=== PATIENT | male | born 1940 | race Caucasian/White ===

== ENCOUNTER 2018-10-02 03:07 | Emergency (ER) | payer MEDICARE ==
[~2018-10-02] VITALS: Ht 182.9 cm; Wt 97.5 kg
--- NOTE | 2018-10-02 03:27 | NUR ---
ED Nurse Note: PT CAME TO ED FROM HOME VIA RA [id number]. PER PT HE WAS WATCHING TV AND HE WOKE UP ON THE FLOOR HIS FRIEND CALLED IVONNE. PT DENIES TRAUMA TO HEAD LEFT FOREARM AND BACK SKIN TEAR PRESENT PRIOR TO ARRIVAL
[2018-10-02 03:28] VITALS: BP_SYST 147; BP_SYST 150; BP_DIAS 100; BP_DIAS 73
[2018-10-02] MEDS ORDERED: dilTIAZem HCl 25mg/5ml Inj IVP ONE (03:30)
--- NOTE | 2018-10-02 03:33 | Emergency Room Report ---
History of Present Illness General Chief Complaint: Generalized Weakness Source: Patient Present Illness HPI Is a 77-year-old male with a history of high blood pressure and atrial fibrillation. He was on Coumadin but stopped 6 months ago secondary to hematuria. He presents with chief complaint of joint weakness. Onset for last couple days. Said he has no energy and can't move. He called 911. Denies any pain. Denies any nausea vomiting. Denies any abdominal pain. Denies any drug use or alcohol. History limited on this patient because he's is a poor historian. Patient had a friend who showed up to the ER. His friend said that 2 weeks ago patient was normal walking around without difficulty. He hadn't heard from him so he went to do a welfare check. He found the patient lying in bed. Has no strength and unable to get up. He called 911. Allergies: Coded Allergies: SULFAMETHOXAZOLE (Verified Allergy, Unknown, 10/02/18) TRIMETHOPRIM (Verified Allergy, Unknown, 10/02/18) Patient History Past Medical History: see triage record, old chart reviewed, HTN, AFib Past Surgical History: other Pertinent Family History: none Social History: Denies: smoking Immunizations: other Reviewed Nursing Documentation: PMH: Agreed; PSxH: Agreed Nursing Documentation-PMH Hx Cardiac Problems: Yes - heart valve replacement Hx Hypertension: Yes Hx Diabetes: Yes Review of Systems Constitutional: Reports: weakness Eye: Denies: eye pain, blurred vision ENT: Denies: ear pain, nose congestion, throat swelling Respiratory: Denies: cough, shortness of breath Cardiovascular: Denies: chest pain, palpitations Gastrointestinal: Denies: abdominal pain, diarrhea, nausea, vomiting Musculoskeletal: Denies: back pain, joint pain Skin: Denies: rash Neurological: Denies: headache, numbness Endocrine: Denies: increased thirst, increased urine Hematologic/Lymphatic: Denies: easy bruising All Other Systems: negative except mentioned in HPI Physical Exam Vital Signs Date Time Temp Pulse Resp B/P (MAP) Pulse Ox O2 Delivery O2 Flow Rate FiO2 10/02/18 03:10 97.0 53 20 150/100 96 Room Air vitals with high blood pressure. Repeat heart rate tachycardic at 130s Sp02 EP Interpretation: reviewed, normal General Appearance: well appearing, no apparent distress, alert Head: normocephalic, atraumatic Eyes: bilateral eye PERRL, bilateral eye EOMI ENT: hearing grossly normal, dry mucus membranes - There is evidence of dry blood Neck: full range of motion, supple, no meningismus Respiratory: chest non-tender, lungs clear, normal breath sounds Cardiovascular #1: no murmur, tachycardia, irregularly irregular Gastrointestinal: normal bowel sounds, non tender, no mass, no organomegaly, no bruit, non-distended Musculoskeletal: back normal, normal range of motion Neurologic: alert, grossly normal Psychiatric: mood/affect normal Skin: warm/dry Procedures Critical Care Time Critical Care Time Critical care is mandated in this patient who presented with rapid A. fib. Patient require my urgent intervention to attenuate the risks of metabolic collapse which may lead to cardiovascular collapse and . Critical care time is 35 minutes excluding any reportable procedure. Critical care time included evaluation, multiple reevaluation, looking at old charts, interpreting laboratory and diagnostic data, discussing case with patient and family and consultants, and charting. Medical Decision Making Diagnostic Impression: Primary Impression: Atrial fibrillation with RVR Additional Impressions: UTI (urinary tract infection) Qualified Codes: N30.00 - Acute cystitis without hematuria ACS (acute coronary syndrome) Acute metabolic encephalopathy CHF exacerbation Qualified Codes: I50.33 - Acute on chronic diastolic (congestive) heart failure Thrombocytopenia HERO (acute kidney injury) Proteinuria Qualified Codes: R80.9 - Proteinuria, unspecified Rhabdomyolysis Qualified Codes: M62.82 - Rhabdomyolysis ER Course Patient presents with altered mental status. Appeared that he has metabolic encephalopathy secondary to UTI/infection. This may contribute to his dehydration and A. fib. I received records from [place]. Patient does have a history of atrial fibrillation and diastolic heart failure which is chronic. His medication list included Pradaxa. Elevated troponin may be secondary to demand ischemia secondary to rapid A. fib and infection. Even though BNP is elevated, patient appear to be dry. Heart rate responded with fluids and Cardizem. Patient mental status improving. No evidence of intracranial bleed. We'll repeat troponin and if not positive, patient is stable for transfer to [place]. I discussed the case with Dr. Randhawa at [facility]. . Except the patient for transfer the [place]. Patient stable for transfer. Laboratory Tests Test 10/02/18 03:25 10/02/18 03:55 White Blood Count 15.3 K/UL (4.8-10.8) H Red Blood Count 6.92 M/UL (4.70-6.10) H Hemoglobin 20.2 G/DL (14.2-18.0) *H Hematocrit 60.0 % (42.0-52.0) H Mean Corpuscular Volume 87 FL (80-99) Mean Corpuscular Hemoglobin 29.2 PG (27.0-31.0) Mean Corpuscular Hemoglobin Concent 33.7 G/DL (32.0-36.0) Red Cell Distribution Width 13.9 % (11.6-14.8) Platelet Count 100 K/UL (150-450) L Mean Platelet Volume 13.2 FL (6.5-10.1) H Neutrophils (%) (Auto) % (45.0-75.0) Lymphocytes (%) (Auto) % (20.0-45.0) Monocytes (%) (Auto) % (1.0-10.0) Eosinophils (%) (Auto) % (0.0-3.0) Basophils (%) (Auto) % (0.0-2.0) Prothrombin Time 12.8 SEC (9.30-11.50) H Prothromb Time International Ratio 1.2 (0.9-1.1) H Activated Partial Thromboplast Time 32 SEC (23-33) Sodium Level 141 MMOL/L (136-145) Potassium Level 4.9 MMOL/L (3.5-5.1) Chloride Level 104 MMOL/L (98-107) Carbon Dioxide Level 26 MMOL/L (21-32) Anion Gap 11 mmol/L (5-15) Blood Urea Nitrogen 40 mg/dL (7-18) H Creatinine 1.9 MG/DL (0.55-1.30) H Estimat Glomerular Filtration Rate mL/min (>60) Glucose Level 167 MG/DL (74-106) H Calcium Level 9.3 MG/DL (8.5-10.1) Total Bilirubin 2.6 MG/DL (0.2-1.0) H Direct Bilirubin 0.5 MG/DL (0.0-0.3) H Aspartate Amino Transf (AST/SGOT) 200 U/L (15-37) H Alanine Aminotransferase (ALT/SGPT) 70 U/L (12-78) Alkaline Phosphatase 57 U/L (46-116) Total Creatine Kinase 4570 U/L (26-308) H Creatine Kinase MB 11.3 NG/ML (0.0-3.6) H Creatine Kinase MB Relative Index 0.2 Troponin I 0.153 ng/mL (0.000-0.056) Pro-B-Type Natriuretic Peptide 3291 pg/mL (0-125) H Total Protein 7.8 G/DL (6.4-8.2) Albumin 3.3 G/DL (3.4-5.0) L Globulin 4.5 g/dL Albumin/Globulin Ratio 0.7 (1.0-2.7) L Serum Alcohol < 3 mg/dL Urine Color Yellow Urine Appearance Clear Urine pH 5 (4.5-8.0) Urine Specific [place] 1.025 (1.005-1.035) Urine Protein 4+ (NEGATIVE) H Urine Glucose (UA) Negative (NEGATIVE) Urine Ketones 1+ (NEGATIVE) H Urine Blood 5+ (NEGATIVE) H Urine Nitrite Negative (NEGATIVE) Urine Bilirubin Negative (NEGATIVE) Urine Urobilinogen Normal MG/DL (0.0-1.0) Urine Leukocyte Esterase 2+ (NEGATIVE) H Urine RBC 10-15 /HPF (0 - 0) H Urine WBC 5-10 /HPF (0 - 0) H Urine Squamous Epithelial Cells Few /LPF (NONE/OCC) Urine Amorphous Sediment Many /LPF (NONE) H Urine Bacteria Moderate /HPF (NONE) H Urine Fine Granular Casts 2-4 /LPF (NONE) H Urine Coarse Granular Casts 15-20 /LPF (NONE) H Urine Opiates Screen Negative (NEGATIVE) Urine Barbiturates Screen Negative (NEGATIVE) Phencyclidine (PCP) Screen Negative (NEGATIVE) Urine Amphetamines Screen Negative (NEGATIVE) Urine Benzodiazepines Screen Negative (NEGATIVE) Urine Cocaine Screen Negative (NEGATIVE) Urine Marijuana (THC) Screen Negative (NEGATIVE) Lab Results Impression labs with elevated white count, kidney function, troponin. EKG Diagnostic Results Rate: tachycardiac Rhythm: other - Rapid A. fib ST Segments: other - nonspecific ST changes ASA given to the pt in ED: No Rhythm Strip Diag. Results EP Interpretation: yes Rate: 95 Rhythm: no PVC's, no ectopy, other - afib Chest X-Ray Diagnostic Results Chest X-Ray Diagnostic Results : Chest X-Ray Ordered: Yes # of Views/Limited/Complete: 1 View Indication: Shortness of Breath EP Interpretation: Yes Interpretation: no consolidation, no effusion, no pneumothorax, no acute cardiopulmonary disease Impression: No acute disease Electronically Signed by: Fam Mcintosh MD Last Vital Signs Date Time Temp Pulse Resp B/P (MAP) Pulse Ox O2 Delivery O2 Flow Rate FiO2 10/02/18 03:28 97.0 53 20 150/100 96 Room Air Status: improved Disposition: XFER SHT-TRM HOSP Condition: Stable Scripts Unable to Obtain Active Prescriptions or Reported Meds Fam Mcintosh MD Oct 02, 2018 03:33
[2018-10-02 03:36] LABS: MEAN CORPUSCULAR VOLUME 87 FL (80-99); PLATELET COUNT 100 K/UL (150-450); RED BLOOD COUNT 6.92 M/UL (4.70-6.10); RED CELL DISTRIBUTION WIDTH 13.9 % (11.6-14.8); WHITE BLOOD COUNT 15.3 K/UL (4.8-10.8)
[2018-10-02 03:44] LABS: HEMOGLOBIN 20.2 G/DL (14.2-18.0)
[2018-10-02 03:45] LABS: ANION GAP 11 mmol/L (5-15); BLOOD UREA NITROGEN 40 mg/dL (7-18); CALCIUM 9.3 MG/DL (8.5-10.1); CARBON DIOXIDE 26 MMOL/L (21-32); CHLORIDE 104 MMOL/L (98-107); CREATININE 1.9 MG/DL (0.55-1.30); POTASSIUM 4.9 MMOL/L (3.5-5.1); SODIUM 141 MMOL/L (136-145)
[2018-10-02 03:46] LABS: INR 1.2 (0.9-1.1)
--- NOTE | 2018-10-02 03:52 | NUR ---
ED Nurse Note: CHEST XRAY COMPLETED
[2018-10-02 04:00] LABS: ALANINE AMINOTRANSFERASE 70 U/L (12-78); ALBUMIN 3.3 G/DL (3.4-5.0); ALBUMIN/GLOBULIN RATIO 0.7 (1.0-2.7); ALKALINE PHOSPHATASE 57 U/L (46-116); ASPARTATE AMINO TRANSFERASE 200 U/L (15-37); BILIRUBIN,TOTAL 2.6 MG/DL (0.2-1.0); CKMB 11.3 NG/ML (0.0-3.6); CREATINE KINASE 4570 U/L (26-308)
--- NOTE | 2018-10-02 04:00 | NUR ---
ED Nurse Note: URINE SENT TO LAB
[2018-10-02 04:04] LABS: BILIRUBIN,DIRECT 0.5 MG/DL (0.0-0.3)
[2018-10-02 04:07] LABS: APPEARANCE,URINE CLEAR; BILIRUBIN, URINE NEGATIVE (NEGATIVE); GLUCOSE, URINE (UA) NEGATIVE (NEGATIVE); KETONES,URINE 1+ (NEGATIVE); LEUKOCYTE ESTERASE ,URINE 2+ (NEGATIVE); NITRITE,URINE NEGATIVE (NEGATIVE); PH,URINE 5 (4.5-8.0); PROTEIN,URINE 4+ (NEGATIVE); UROBILINOGEN,URINE NORMAL MG/DL (0.0-1.0)
[2018-10-02 04:09] LABS: COLOR,URINE YELLOW
--- NOTE | 2018-10-02 04:15 | NUR ---
BED Nurse Note: VALERIA VANESSA AT BEDSIDE PT WENT FOR CT Addendum: 10/02/18 at 0437 by THERESAON Nurse Note: VALERIA VANESSA AT BEDSIDE PT WENT FOR CT
[2018-10-02] MEDS ORDERED: cefTRIAXone 1 GM in NS 55 ML IVPB ONE (04:30)
[2018-10-02 05:16] VITALS: BP 146/89
--- NOTE | 2018-10-02 07:04 | NUR ---
HAND-OFF: Report given to JACKSON Chávez.
[2018-10-02 07:08] VITALS: BP 131/99
--- NOTE | 2018-10-02 07:12 | NUR ---
ED Nurse Note: Received patient in bed sleeping. pt woke up on nurse's commands and follow them and fell asleep again. vital signs stable as documented. skin check has not done since pt fell asleep right after shift change assessment. will be done before transferring patient. currently waiting for the [facility] to provide us calling and transportation information.
[2018-10-02 09:00] VITALS: BP 144/89
--- NOTE | 2018-10-02 09:04 | NUR ---
spoke to óscar at [facility] will be calling back with transfer information soon
--- NOTE | 2018-10-02 09:15 | NUR ---
PATIENT HAS BEEN ACCEPTED AT [facility] FOR REPORT [phone]
--- NOTE | 2018-10-02 09:50 | NUR ---
ED Nurse Note: Report given to JACKSON Harrison
[2018-10-02 10:30] VITALS: BP 144/71
--- NOTE | 2018-10-02 10:30 | NUR ---
ED Nurse Note: Ambulance arrived with 2 EMS. pt left department in stable condition.
--- NOTE | 2018-10-02 11:18 | Diagnostic Imaging Report ---
Indication: Shortness of breath Technique: One view of the chest Comparison: none Findings: The heart is upper limits normal in size. There is a cardiac valve prosthesis. Lungs and pleural spaces are clear. Impression: No acute process
--- NOTE | 2018-10-02 11:21 | Diagnostic Imaging Report ---
Indications: Altered mental status Technique: Spiral acquisitions obtained through the brain. Angled axial and coronal 5 x 5 mm slices were reconstructed. Total dose length product 1498.48 mGycm. CTDI vol(s) 70.38 mGy. Dose reduction achieved using automated exposure control Comparison: None. Findings: Artifact from dental amalgam obscures the posterior fossa. No acute intracranial hemorrhage or edema, mass effect, nor midline shift. There is age-related enlargement of the ventricles and extra axial CSF spaces. Normal terrazas-white differentiation. Intact calvarium. Visualized orbits and sinuses are unremarkable. The mastoids are clear. Impression: Age-related volume loss Negative for acute intracranial bleed or mass effect The CT scanner at [facility] is accredited by the [employer] and the scans are performed using protocols designed to limit radiation exposure to as low as reasonably achievable to attain images of sufficient resolution adequate for diagnostic evaluation.
--- NOTE | 2018-10-03 16:03 | Cardiology Report ---
APPROVED REPORT EKG Measurement Heart [id number] Atrial fibrillation Left axis deviation Abnormal ECG
== END 2018-10-02 10:30 | disposition short-term general hospital (02) ==
LOC: EDBD 03:07 → EMR 03:35
DX: I48.2 Chronic atrial fibrillation (principal); N30.00 Acute cystitis without hematuria; I50.33 Acute on chronic diastolic (congestive) heart failure; R80.9 Proteinuria, unspecified; M62.82 Rhabdomyolysis; I11.0 Hypertensive heart disease with heart failure; G93.41 Metabolic encephalopathy; I24.9 Acute ischemic heart disease, unspecified; N17.9 Acute kidney failure, unspecified; Z95.2 Presence of prosthetic heart valve; E11.9 Type 2 diabetes mellitus without complications; Z88.1 Allergy status to other antibiotic agents; Z88.2 Allergy status to sulfonamides
CPT/HCPCS: 36415; 70450; 71045; 80053; 80307; 81003; 82248; 82550; 82553; 83880; 84484; 85025; 85610; 85730; 87086; 93005; 96361; 96365; 96375; 99291; G0480; J0696; 80329